=== PATIENT | male | born 2000 | race Caucasian/White ===

== ENCOUNTER 2023-10-31 11:58 | Emergency (ER) | payer BC ==
[~2023-10-31] VITALS: Ht 175.3 cm; Wt 81.8 kg
[2023-10-31 12:42] VITALS: BP 166/95; PULSE 74; TEMP 98.2
== END 2023-10-31 12:44 | disposition home or self-care (01) ==
LOC: COL.ER 11:58
DX: S93.402A Sprain of unspecified ligament of left ankle, initial encounter (principal); X50.1XXA Overexertion from prolonged static or awkward postures, initial encounter; Y93.02 Activity, running